=== PATIENT | female | born 1950 | race Caucasian/White ===

== ENCOUNTER 2018-09-26 10:56 | Emergency (ER) | payer MEDICARE ==
[2018-09-26] MEDS: ARIPIPRAZOLE 10 MG TAB PO (12:26)
[2018-09-26] MEDS: DEXAMETHASONE 10 MG/ML 1 ML INJ IM (12:27)
[2018-09-26] MEDS: ONDANSETRON (ODT) 4 MG TAB ODT (12:27)
[2018-09-26] MEDS: HYDROCODONE/APAP (5/325) TAB PO (12:27)
== END 2018-09-26 13:34 | disposition left against medical advice (07) ==
LOC: FTE 13:34
DX: M54.9 Dorsalgia, unspecified (principal)
CPT/HCPCS: 96372; 99284-25